=== PATIENT | female | born 1935 | race Caucasian/White ===

== ENCOUNTER 2016-11-07 17:59 | Emergency (ER) | payer MEDICARE, BC ==
[~2016-11-07] VITALS: Ht 157.5 cm; Wt 115.0 kg
[~2016-11-07 17:59] MED LIST: CEFT500T PO; COMBAER INH; LASI20TA PO; LOMO PO; LORT5TAB PO; METO25 PO; MUCI600T PO; POTA-243 PO; PRIN5TAB PO; PROT40TA PO; ZITH500T PO
[2016-11-07 18:06] VITALS: BP 183/64; PULSE 75; RESP 18; TEMP 98.3; O2SAT 99
[2016-11-07] MEDS ORDERED: FURO1TAB60 PO (19:30)
[2016-11-07] MEDS ORDERED: METO25TA3 PO (19:30)
[2016-11-07] MEDS ORDERED: LISI10TA3 PO (19:30)
[2016-11-07] MEDS ORDERED: POTA10TA2 PO (19:30)
[2016-11-07] MEDS ORDERED: PRAV40TA2 PO (19:30)
[2016-11-07] MEDS ORDERED: ASPI1TAB69 PO (19:30)
[2016-11-07] MEDS ORDERED: SODIUM CHLORIDE 0.9% FLUSH 5 ML FLUSH IVF PRN (20:00)
--- NOTE | 2016-11-07 20:00 | PD ---
HPI Chief Complaint: Musculoskeletal Complaint Time Seen by Provider: 20:19 Travel History International Travel<30 days: No Contact w/Intl Traveler<30days: No Traveled to known affect area: No History of Present Illness HPI 81-year-old female presents to the emergency department for complaint of one week of intermittent stabbing pain to the left lower extremity. Patient is unable to associate activity or rest with the pain. Pain is sporadic. Patient states that it feels like a stabbing charley horse as opposed to a cramp. Patient has not noticed any pallor or coolness of the extremity. Patient is not noticed any swelling or redness or increased warmth to the extremity. Patient denies any injury. Patient is not contacted her primary care provider over the past week of symptoms. Patient has taken no medication for symptom relief. No prior history of peripheral vascular disease. No history of clotting disorder DVT or PE. Presently pain is 0/10 intensity but at worst is 10 over 10 in intensity. Patient is unable to identify exacerbating or alleviating factors although unable to lay on her left side for very long as it seems to worsen her symptoms or increases pain to the left hip and lower extremity. No lower extremity numbness tingling or weakness no bladder or bowel dysfunction no saddle anesthesia. PFSH Past Medical History Narrative Medical Arthritis depression dyslipidemia hypertension COPD right hip surgery cholecystectomy and coronary angioplasty no tobacco use Arthritis: Yes Blood Disorders: No Anxiety: No Depression: Yes Cancer: No Cardiovascular Problems: Yes (HTN) High Cholesterol: Yes COPD: Yes Diminished Hearing: No Endocrine: No GERD: Yes Genitourinary: No Hypertension: Yes Immune Disorder: No Musculoskeletal: Yes (RIGHT HIP 2 RODS AND 4 SCREWS) Neurologic: No Psychiatric: Yes Reproductive: No Respiratory: Yes Menopausal: Yes Past Surgical History Cholecystectomy: Yes Other Surgery: Yes (GALLBLADDER SURG 1990. [id number]) Social History Alcohol Use: Yes (ALCHOLIC 1991, BEER [employer]INKER NOW , 2 BEERS PER DAY) Tobacco Use: No (quit 2 mo ago) Substance Use: No Allergies-Medications (Allergen,Severity, Reaction): Coded Allergies: Cortisone (Verified Allergy, Mild, 11/07/16) Reported Meds & Prescriptions Reported Meds & Active Scripts Active Tramadol (Tramadol HCl) 50 Mg Tab 0.5-1 Mg PO Q6H PRN Reported Aspirin 81 Mg Tabdr 81 Mg PO DAILY Pravastatin 40 Mg Tab 40 Mg PO HS Potassium Chloride ER (Potassium Chloride) 10 Meq Tab 10 Meq PO TID Lisinopril 10 Mg Tab 10 Mg PO DAILY Lasix (Furosemide) 40 Mg Tab 40 Mg PO DAILY Metoprolol Tartrate 25 Mg Tab 25 Mg PO DAILY Review of Systems Except as stated in HPI: all other systems reviewed are Neg General / Constitutional: No: Fever, Chills HENT: No: Congestion Cardiovascular: No: Chest Pain or Discomfort, Diaphoresis, Dyspnea on exertion , Edema, Claudication Respiratory: No: Cough, Shortness of Breath Gastrointestinal: No: Nausea, Vomiting, Abdominal Pain Genitourinary: No: Flank Pain Musculoskeletal: Positive: Myalgias, Arthralgias, Cramping, Pain, No: Limited ROM Skin: No Rash Neurologic: No: Weakness, Paresthesia, Incontinence, Sensory Disturbance Psychiatric: Positive: Anxiety Endocrine: No: Heat Intolerance Hematologic/Lymphatic: No: Easy Bruising Physical Exam Narrative GENERAL: Well developed well-nourished female in no acute distress no respiratory distress SKIN: Warm and dry. HEAD: Normocephalic. EYES: No scleral icterus. No injection or drainage. NECK: Supple, trachea midline. No JVD or lymphadenopathy. CARDIOVASCULAR: Regular rate and rhythm without murmurs, gallops, or rubs. RESPIRATORY: Breath sounds equal bilaterally. No accessory muscle use. GASTROINTESTINAL: Abdomen soft, non-tender, nondistended. MUSCULOSKELETAL: No cyanosis, or edema. Radial pulses 2+ to palpation bilaterally; bilateral dorsalis pedis pulses 2+ to palpation bilateral feet are pink and warm with brisk capillary refill less than 2 seconds no pallor no coolness. No calf tenderness or edema. Femoral pulses 2+ to palpation. BACK: Nontender without obvious deformity. No CVA tenderness. Data Data Last Documented VS Vital Signs Date Time Temp Pulse Resp B/P Pulse Ox O2 Delivery O2 Flow Rate FiO2 11/07/16 22:00 18 11/07/16 21:49 64 151/72 97 11/07/16 20:05 Room Air 11/07/16 18:06 98.3 Orders Electrocardiogram (11/07/16 19:56) Basic Metabolic Panel (Bmp) (11/07/16 19:56) Complete Blood Count With Diff (11/07/16 19:56) Magnesium (Mg) (11/07/16 19:56) Troponin I (2/21/17 19:56) Iv Access Insert/Monitor (11/07/16 19:56) Oximetry (11/07/16 19:56) Sodium Chloride 0.9% Flush (Ns Flush) (11/07/16 20:00) Us Leg Venous Doppler (11/07/16 ) Ketorolac Inj (Toradol Inj) (11/07/16 21:15) Labs Laboratory Tests Test 11/07/16 20:00 White Blood Count 5.5 TH/MM3 Red Blood Count 4.45 MIL/MM3 Hemoglobin 14.1 GM/DL Hematocrit 42.4 % Mean Corpuscular Volume 95.3 FL Mean Corpuscular Hemoglobin 31.7 PG Mean Corpuscular Hemoglobin 33.3 % Concent Red Cell Distribution Width 12.1 % Platelet Count 129 TH/MM3 Mean Platelet Volume 8.7 FL Neutrophils (%) (Auto) 51.0 % Lymphocytes (%) (Auto) 34.8 % Monocytes (%) (Auto) 10.4 % Eosinophils (%) (Auto) 2.8 % Basophils (%) (Auto) 1.0 % Neutrophils # (Auto) 2.7 TH/MM3 Lymphocytes # (Auto) 1.9 TH/MM3 Monocytes # (Auto) 0.6 TH/MM3 Eosinophils # (Auto) 0.2 TH/MM3 Basophils # (Auto) 0.1 TH/MM3 CBC Comment DIFF FINAL Differential Comment Sodium Level 144 MEQ/L Potassium Level 4.1 MEQ/L Chloride Level 107 MEQ/L Carbon Dioxide Level 27.5 MEQ/L Anion Gap 10 MEQ/L Blood Urea Nitrogen 25 MG/DL Creatinine 0.86 MG/DL Estimat Glomerular Filtration 63 ML/MIN Rate Random Glucose 102 MG/DL Calcium Level 8.5 MG/DL Magnesium Level 2.3 MG/DL Troponin I LESS THAN 0.02 NG/ML MDM Medical Decision Making Medical Screen Exam Complete: Yes Emergency Medical Condition: Yes Medical Record Reviewed: Yes Interpretation(s) EKG sinus bradycardia rate [address] elevation noted left bundle branch block noted ( not noted on last available ekg 2009) CBC & BMP Diagram 11/07/16 20:00 Differential Diagnosis Electrolyte disturbance, peripheral vascular disease, claudication/limits ischemia, DVT, sciatica, HNP Narrative Course EKG performed shows left bundle branch block comparison EKG last available from 2009 not noted at that time. 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 Does not know if she has an abnormal EKG has had coronary angioplasty in 1995 Diagnosis Primary Impression: Lower extremity pain, left Additional Impression: Sciatica of left side without back pain Referrals: Primary Care Physician call for appointment Patient Instructions: General Instructions Additional Instructions: Follow-up with your primary care provider call office in a.m. to schedule follow -up appointment this week Return to the emergency department for any concerns or change in condition Apply moist heat to lower extremity as needed for comfort Take pain medication as prescribed as needed for pain greater than 5/10 in intensity; start with half tablet then increase as tolerated to full dose for lower extremity pain Continue chronic medications as presently prescribed May use as tolerated [id number] ibuprofen/Advil/Motrin every 6-8 hours per package instructions; avoid prolonged daily use Med/Other Pt SpecificInfo: Prescription(s) given Scripts Tramadol 50 Mg Tab0.5-1 Mg PO Q6H PRN (PAIN) #12 TAB Ref 0 Prov:Melissa Murphy MD 11/07/16 Disposition: 01 DISCHARGE HOME Condition: Stable Melissa Murphy MD Nov 07, 2016 20:00
[2016-11-07 20:05] VITALS: BP 148/72; PULSE 77; RESP 20; O2SAT 97
[2016-11-07 20:13] LABS: AUTOMATED NEUTROPHIL # 2.7 TH/MM3 (1.8-7.7); BASOPHIL # 0.1 TH/MM3 (0-0.2); EOSINOPHIL # 0.2 TH/MM3 (0-0.4); EOSINOPHIL % 2.8 % (0.0-4.0); HEMATOCRIT 42.4 % (35.0-46.0); HEMO FLAGS DIFF FINAL; LYMPH % 34.8 % (9.0-44.0); LYMPHOCYTE # 1.9 TH/MM3 (1.0-4.8); MEAN CELL VOLUME 95.3 FL (80.0-100.0); MEAN CORPUSCULAR HEMOGLOBIN 31.7 PG (27.0-34.0); MEAN CORPUSCULAR HGB CONC 33.3 % (32.0-36.0); MONO % 10.4 % (0.0-8.0); PLATELET COUNT 129 TH/MM3 (150-450); RED BLOOD COUNT 4.45 MIL/MM3 (4.00-5.30); RED CELL DISTRIBUTION WIDTH 12.1 % (11.6-17.2); WHITE BLOOD COUNT 5.5 TH/MM3 (4.0-11.0)
[2016-11-07 20:22] LABS: CHLORIDE 107 MEQ/L (98-107); POTASSIUM 4.1 MEQ/L (3.5-5.1); SODIUM (NA) 144 MEQ/L (136-145)
[2016-11-07 20:27] LABS: ANION GAP 10 MEQ/L (5-15); BICARBONATE 27.5 MEQ/L (21.0-32.0); BLOOD UREA NITROGEN 25 MG/DL (7-18); MAGNESIUM 2.3 MG/DL (1.5-2.5)
[2016-11-07 20:31] LABS: GLOMERULAR FILTRATION RATE 63 ML/MIN (>89)
--- NOTE | 2016-11-07 21:11 | RADHPO ---
EXAM DATE/TIME: 11/07/2016 20:51 [facility] COMPARISON: No previous studies available for comparison. INDICATIONS : Pain in left lower extremity. MEDICAL HISTORY : Hypercholesterolemia. Hypertension. COPD. Arthritis. GERD. SURGICAL HISTORY : Cholecystectomy. Angioplasty. Right hip 2 rods and 4 screws. Bilateral heel surgery. ENCOUNTER: Initial ACUITY: 1 week PAIN SCORE: 0/10 LOCATION: Left leg. TECHNIQUE: Venous ultrasound of the leg was performed from the inguinal ligament to the proximal calf. Real-juan e, color Doppler and spectral tracing, compression and augmentation techniques were used. FINDINGS: There is normal compressibility of the deep venous system from the inguinal region to the proximal ca lf. No echogenic clot is seen in the lumen of the common femoral, femoral, popliteal, and posterior tibial veins. There is a normal response of the venous system to proximal and distal augmentation an d respiration. CONCLUSION: No DVT of the left lower extremity. Konstantin Barry MD on November 07, 2016 at 21:09 Board Certified Radiologist. This report was verified electronically.
[2016-11-07] MEDS ORDERED: KETOROLAC TROMETHAMINE 30 MG/ML (IVP) VIAL IV PUSH ONE (21:15)
[2016-11-07] MEDS ORDERED: ROBA750T PO (21:26)
[2016-11-07] MEDS ORDERED: TRAM50TA PO (21:27)
[2016-11-07 21:49] VITALS: BP 151/72
[2016-11-07 22:00] VITALS: RESP 18
--- NOTE | 2016-11-08 22:17 | EKG ---
Date Performed: 11/07/2016 Time Performed: 20:19:46 PTAGE: 81 years EKG: Sinus bradycardia with borderline 1st degree A-V block. Left bundle branch block Abnormal E CG PREVIOUS TRACING : 08/22/2010 22.18 Compared to the previous tracing, LBBB now present DOCTOR: Maddy Garcia Interpretating Date/Time 11/08/2016 22:15:38
== END 2016-11-07 22:00 | disposition home or self-care (01) ==
LOC: PHED 17:59
DX: M79.605 Pain in left leg (principal); M54.32 Sciatica, left side; R94.31 Abnormal electrocardiogram [ECG] [EKG]; I10 Essential (primary) hypertension; E78.5 Hyperlipidemia, unspecified; Z87.39 Personal history of other diseases of the musculoskeletal system and connective tissue; Z86.59 Personal history of other mental and behavioral disorders; Z87.09 Personal history of other diseases of the respiratory system; Z87.19 Personal history of other diseases of the digestive system; Z87.891 Personal history of nicotine dependence
CPT/HCPCS: 80048; 83735; 84484; 85025; 93005; 93971; 96374; 99284; J1885